=== PATIENT | male | born 1970 | race African-American/Black ===

== ENCOUNTER 2023-06-06 05:40 | Emergency (ER) | payer BC, SELFPAY ==
--- NOTE | 2023-06-06 18:22 | EDPHYS ---
Physician Documentation [facility] Name: Tevin Downs Age: 52 yrs Sex: Male : 1970 Arrival Date: 06/06/2023 Time: 17:40 Bed 20 Private MD: ED Physician Steve Parada HPI: 06/06 18:15 This 52 yrs old Black Male presents to ER via Ambulatory with complaints of Blood cp Pressure Problem, Arm Pain. 18:15 Patient is a 52-year-old male who presents to the emergency department with reported cp concern for hypertension. Patient reports he has had longstanding swelling of both upper and lower eyelids of the right eye and that he is scheduled for surgical procedure but was told he needed clearance by physician prior to surgery. Patient reports he has been monitoring his blood pressure at home and noticed that it was elevated but has no diagnosis of hypertension. Patient denies any current chest pain denies headache but does report intermittent right arm pain. Patient denies any arm pain at this time. Historical: - Allergies: 18:00 No Known Allergies; iw - Home Meds: 18:00 None [Active]; iw - PMHx: 18:00 None; iw - PSHx: 18:00 hernia; iw - Immunization history:: Client reports having NOT received the Covid vaccine. - Social history:: Smoking status: Reported history of juuling and/or vaping. ROS: 18:18 All other systems are negative. cp Exam: 18:20 Constitutional: The patient appears in no acute distress, alert, awake, non-toxic, well cp developed, well nourished. 18:20 Head/face: Noted is swelling, that is mild, of the left upper and lower eyelid. cp 18:20 Eyes: Pupils: equal, round, and reactive to light and accomodation, Extraocular movements: intact throughout, Conjunctiva: normal, no exudate, no injection, Sclera: no appreciated abnormality, Lids and lashes: appear normal, bilaterally. 18:20 ENT: External ear(s): are unremarkable, Nose: is normal, Mouth: Lips: moist, Oral mucosa: pink and intact, moist, Posterior pharynx: is normal, airway is patent, no erythema, no exudate. 18:20 Neck: ROM/movement: is normal, is supple, without pain, no range of motions limitations, no nuchal rigidity. 18:20 Chest/axilla: Inspection: normal, Palpation: crepitus, is not appreciated, tenderness, that is mild, of the right upper lateral chest. 18:20 Cardiovascular: Rate: normal, Rhythm: regular. 18:20 Respiratory: the patient does not display signs of respiratory distress, Respirations: normal, no use of accessory muscles, no retractions, labored breathing, is not present, Breath sounds: are clear throughout, no decreased breath sounds, no stridor, no wheezing. 18:20 Abdomen/GI: Exam negative for discomfort, distension, guarding, Inspection: abdomen appears normal. 18:20 Back: pain, is absent, ROM is normal. 18:20 Musculoskeletal/extremity: Exam is negative for decreased range of motion, deformity, injury. 18:20 Neuro: Orientation: to person, place \T\ time. Mentation: is normal, Motor: moves all cp fours, strength is normal, Sensation: is normal, Gait: is steady, at a normal pace, without difficulty. Vital Signs: 17:58 BP 138 / 89; Pulse 82; Resp 16; Temp 98.3; Pulse Ox 97% on R/A; Weight 79.38 kg; Height iw 5 ft. 5 in. ; Pain 0/10; 17:58 Body Mass Index 29.12 (79.38 kg, 165.1 cm) iw 17:58 Pain Scale: Adult iw MDM: 18:09 Patient medically screened. cp 18:15 Differential diagnosis: hypertension, hypertensive urgency, hypertensive emergency. cp 18:21 Data reviewed: vital signs, nurses notes. cp 18:21 Counseling: I had a detailed discussion with the patient and/or guardian regarding: the cp historical points, exam findings, and any diagnostic results supporting the discharge/admit diagnosis, to return to the emergency department if symptoms worsen or persist or if there are any questions or concerns that arise at home. Administered Medications: No medications were administered Disposition Summary: 06/06/23 18:21 Discharge Ordered Location: Home cp Problem: an ongoing problem cp Symptoms: are unchanged cp Condition: Stable cp Diagnosis - Encounter for examination of blood pressure cp Followup: cp - With: Jack Velasquez DO - When: 2 - 3 days - Reason: Recheck today's complaints Discharge Instructions: - Discharge Summary Sheet cp - Form - Blood Pressure Record Sheet cp - How to Take Your Blood Pressure cp Forms: - Medication Reconciliation Form cp - Thank You Letter cp - Antibiotic Education cp - Prescription Opioid Use cp - Patient Portal Instructions cp Signatures: Nicci Downs RN RN Steve Figueroa PA PA cp
--- NOTE | 2023-06-06 18:22 | ER ---
Nurse's Notes [facility] Name: Tevin Downs Age: 52 yrs Sex: Male : 1970 Arrival Date: 06/06/2023 Time: 17:40 Bed 20 Private MD: Diagnosis: Encounter for examination of blood pressure Presentation: 06/06 17:58 Chief complaint: Patient states: high BP and feels like my muscles are burning under my iw right shoulder and into chest started a couple days ago. Coronavirus screen: At this time, the client does not indicate any symptoms associated with coronavirus-19. Ebola Screen: Patient negative for fever greater than or equal to 101.5 degrees Fahrenheit, and additional compatible Ebola Virus Disease symptoms Patient denies exposure to infectious person. Patient denies travel to an Ebola-affected area in the 21 days before illness onset. No symptoms or risks identified at this time. Initial Sepsis Screen: Does the patient meet any 2 criteria? No. Patient's initial sepsis screen is negative. Does the patient have a suspected source of infection? No. Patient's initial sepsis screen is negative. Risk Assessment: Do you want to hurt yourself or someone else? Patient reports no desire to harm self or others. Onset of symptoms was June 04, 2023. 17:58 Method Of Arrival: Ambulatory iw 17:58 Acuity: KATHE 3 iw Historical: - Allergies: 18:00 No Known Allergies; iw - Home Meds: 18:00 None [Active]; iw - PMHx: 18:00 None; iw - PSHx: 18:00 hernia; iw - Immunization history:: Client reports having NOT received the Covid vaccine. - Social history:: Smoking status: Reported history of juuling and/or vaping. Screenin:28 [facility] ED Fall Risk Assessment (Adult) History of falling in the last 3 months, mb9 including since admission No falls in past 3 months (0 pts) Confusion or Disorientation No (0 pts) Intoxicated or Sedated No (0 pts) Impaired Gait No (0 pts) Mobility Assist Device Used No (0 pt) Altered Elimination No (0 pt) Score/Fall Risk Level 0 - 2 = Low Risk Oriented to surroundings, Maintained a safe environment, Educated pt \T\ family on fall prevention, incl call for assistance when getting out of bed. Abuse screen: Denies threats or abuse. Nutritional screening: No deficits noted. Tuberculosis screening: No symptoms or risk factors identified. Assessment: 18:27 General: Appears in no apparent distress. Behavior is calm, cooperative. Pain: Denies mb9 pain. Neuro: Tay Agitation-Sedation Scale (RASS): 0 - Alert and Calm Level of Consciousness is awake, alert, obeys commands, Oriented to person, place, time, situation, Appropriate for age. Cardiovascular: Denies chest pain, shortness of breath. Respiratory: Airway is patent. GI: No signs and/or symptoms were reported involving the gastrointestinal system. : No signs and/or symptoms were reported regarding the genitourinary system. EENT: No signs and/or symptoms were reported regarding the EENT system. Derm: Skin is pink, warm \T\ dry. Musculoskeletal: Range of motion: intact in all extremities. Vital Signs: 17:58 BP 138 / 89; Pulse 82; Resp 16; Temp 98.3; Pulse Ox 97% on R/A; Weight 79.38 kg; Height iw 5 ft. 5 in. ; Pain 0/10; 17:58 Body Mass Index 29.12 (79.38 kg, 165.1 cm) iw 17:58 Pain Scale: Adult iw ED Course: 17:43 Patient arrived in ED. ts1 17:56 Steve Guevara PA is PHCP. cp 17:56 Steve Parada MD is Attending Physician. cp 18:00 Triage completed. iw 18:02 Arm band placed on. iw 18:02 Placed in gown. Bed in low position. Call light in reach. Side rails up X 1. Client mb9 placed on continuous cardiac and pulse oximetry monitoring. NIBP monitoring applied. 18:10 Isabela Hayden, SILVIA is Primary Nurse. mb9 18:18 Jack Velasquez DO is Referral Physician. cp 18:28 No provider procedures requiring assistance completed. Patient did not have IV access mb9 during this emergency room visit. Administered Medications: No medications were administered Medication: 18:28 VIS not applicable for this client. mb9 Outcome: 18:21 Discharge ordered by . cp 18:28 Discharged to home ambulatory. mb9 18:28 Condition: stable 18:28 Discharge instructions given to patient, Instructed on discharge instructions, follow up and referral plans. Demonstrated understanding of instructions, follow-up care. 18:28 Patient left the ED. mb9 Signatures: Nicci Downs RN RN iw Steve Guevara PA PA cp Breneman, Mary Beth, RN RN mb9 Patt Gifford PAS PAS ts1
[2023-06-06 18:38] VITALS: BP 138/89; TEMP 98.3; O2SAT 97
== END 2023-06-06 18:28 | disposition home or self-care (01) ==
LOC: ER 17:40
DX: Z01.30 Encounter for examination of blood pressure without abnormal findings (principal)
CPT/HCPCS: 99283

== ENCOUNTER → 2023-12-15 | Emergency (ER) | payer BC ==
[~2023-12-15] MED LIST: IBUPROFEN 200 MG TAB PO ONE; IBUPROFEN 400 MG TAB ONE; predniSONE 20 MG TAB ONE
--- OUTSIDE RECORDS SUMMARY | 2023-12-15 19:10 | XMS REPORT | Continuity of Care Document ---
Author Name Unknown Address [address] [place] [address] [address] [place] [address] [facility] thconnect Address [address] [facility] [address] [place] [address] Care Team Providers Care Rn Interventional Name Role Phone BURKE MCDONALD Attending Clinician Unavaila ble Payers Payer Name Policy Type Policy Number Effective Date Expirati on Date Source [facility] 2 [id number] 2023 00:00:00 Encounters Start Date/Time End Date/Time Encounter Type Admission Type Attending Clinicians Care Facility Care Department Encounter ID Source 2023-06-18 14:15:00 2023-06-18 14:15:00 Outpatient BURKE MCDONALD [id number] Saima Campbell
--- NOTE | 2023-12-15 19:21 | EDPHYS ---
Physician Documentation [facility] Name: Tevin Downs Age: 53 yrs Sex: Male : 1970 Arrival Date: 12/15/2023 Time: 19:06 Bed IW10 Private MD: ED Physician Glen Matute HPI: 12/15 19:32 This 53 yrs old Black Male presents to ER via Ambulatory with complaints of Shoulder kb Pain, Breathing Difficulty, Rash. 19:32 Patient is a 53-year-old male who reports rash and right chest pain that is worse with kb breathing and movement that started 2 days ago. Denies fever. Denies injury or trauma.. Historical: - Allergies: 19:24 No Known Allergies; km8 - Home Meds: 19:24 None [Active]; km8 - PMHx: 19:24 None; km8 - PSHx: 19:24 hernia; km8 - Immunization history:: Client reports having NOT received the Covid vaccine. Flu vaccine is not up to date. - Social history:: Smoking status: Patient reports the use of cigarette tobacco products, smokes one pack cigarettes per day. Patient uses alcohol, but reports only rare drinking. Patient/guardian denies using street drugs. ROS: 19:31 Constitutional: Negative for fever, chills, and weight loss, kb 19:31 Cardiovascular: Positive for chest pain, with movement, of the right scapular area and anterior aspect of right upper chest, 19:31 Skin: Positive for rash, 19:31 All other systems are negative, Exam: 19:31 Constitutional: This is a well developed, well nourished patient who is awake, alert, kb and in no acute distress. Head/Face: Normocephalic, atraumatic. ENT: Moist Mucous membranes Cardiovascular: Regular rate Respiratory: Respirations even and unlabored. No increased work of breathing. Talking in full sentences Abdomen/GI: Soft, non-tender. No distention MS/ Extremity: Pulses equal, no cyanosis. Neurovascular intact. Full, normal range of motion. Neuro: Awake and alert, GCS 15, oriented to person, place, time, and situation. Moves all extremities. Normal gait. 19:31 Skin: rash a moderate rash is noted, consistent with zoster, on the anterior aspect of right upper chest and right scapular area, Vital Signs: 19:19 BP 173 / 116; Pulse 85; Resp 16; Temp 98.4(IR); Pulse Ox 99% on R/A; Weight 70.76 kg km8 (R); Height 5 ft. 5 in. ; Pain 8/10; 19:19 Body Mass Index 25.96 (70.76 kg, 165.1 cm) [facility] 19:19 Pain Scale: Adult km8 MDM: 19:14 Patient medically screened. kb 19:32 Differential diagnosis: urticaria, contusion, strain, shingles. Data reviewed: vital kb signs, nurses notes. Test considered but Not performed: X-ray: x-ray considered but obvious shingles on physical exam, no bony tenderness, full ROM. Counseling: I had a detailed discussion with the patient and/or guardian regarding the historical points, exam findings, and any diagnostic results supporting the discharge/admit diagnosis, the need for outpatient follow up, a family practitioner, to return to the emergency department if symptoms worsen or persist or if there are any questions or concerns that arise at home. Administered Medications: No medications were administered Disposition: 12/16 09:03 Co-signature as Attending Physician, Glen Matute MD I reviewed the patient's care rn provided by the Advanced Practice Provider and agree with the diagnosis and treatment plan. Disposition Summary: 12/15/23 19:20 Discharge Ordered Notes: Location: Home kb Condition: Stable kb Diagnosis - Zoster without complications kb Followup: kb - With: Emergency Department - When: As needed - Reason: Worsening of condition Followup: kb - With: Private Physician - When: 2 - 3 days - Reason: Recheck today's complaints, Continuance of care, Re-evaluation by your physician Discharge Instructions: - Discharge Summary Sheet kb - Shingles, [id number] kb Forms: - Medication Reconciliation Form kb - Thank You Letter kb - Antibiotic Education kb - Prescription Opioid Use kb - Patient Portal Instructions kb - Leadership Thank You Letter kb Prescriptions: - Valtrex 1 gram Oral tablet - take 1 tablet ORAL route 3 times per day for 7 days; 21 tablet; Refills: 0, kb Product Selection Permitted - acetaminophen-codeine 300-30 mg Oral tablet - take 1 tablet ORAL route every 4-6 hours As needed; 16 tablet; Refills: 0, kb Product Selection Permitted Signatures: Tracey Irby FNP-C FNP-Ckb Glen Matute MD MD rn Darlyn Vick, SILVIA RN km8
--- NOTE | 2023-12-15 19:41 | ER ---
Nurse's Notes [facility] Name: Tevin Downs Age: 53 yrs Sex: Male : 1970 Arrival Date: 12/15/2023 Time: 19:06 Bed IW10 Private MD: Diagnosis: Zoster without complications Presentation: 12/15 19:19 Chief complaint: Patient states: rash to right chest starting 2 days ago. Coronavirus km8 screen: Client denies travel out of the [place] in the last 14 days. Ebola Screen: No symptoms or risks identified at this time. Initial Sepsis Screen: Does the patient meet any 2 criteria? No. Patient's initial sepsis screen is negative. Does the patient have a suspected source of infection? No. Patient's initial sepsis screen is negative. Risk Assessment: Do you want to hurt yourself or someone else? Patient reports no desire to harm self or others. Onset of symptoms was December 13, 2023. 19:19 Method Of Arrival: Ambulatory km8 19:19 Acuity: KATHE 4 km8 Triage Assessment: 19:24 General: Appears in no apparent distress. uncomfortable, Behavior is calm, cooperative, km8 appropriate for age. Pain: Complains of pain in right chest wall Pain currently is 8 out of 10 on a pain scale. EENT: No signs and/or symptoms were reported regarding the EENT system. Neuro: Level of Consciousness is awake, alert, obeys commands, Oriented to person, place, time, situation, Appropriate for age. Cardiovascular: Denies chest pain, shortness of breath, Capillary refill < 3 seconds Patient's skin is warm and dry. Respiratory: Airway is patent Respiratory effort is even, unlabored, Respiratory pattern is regular, symmetrical. GI: No signs and/or symptoms were reported involving the gastrointestinal system. : No signs and/or symptoms were reported regarding the genitourinary system. Derm: Skin has blisters on right chest wall Skin is dry, Skin is pink, warm \T\ dry. normal, Skin temperature is warm. Musculoskeletal: Circulation, motion, and sensation intact. Range of motion: intact in all extremities. Historical: - Allergies: 19:24 No Known Allergies; km8 - Home Meds: 19:24 None [Active]; km8 - PMHx: 19:24 None; km8 - PSHx: 19:24 hernia; km8 - Immunization history:: Client reports having NOT received the Covid vaccine. Flu vaccine is not up to date. - Social history:: Smoking status: Patient reports the use of cigarette tobacco products, smokes one pack cigarettes per day. Patient uses alcohol, but reports only rare drinking. Patient/guardian denies using street drugs. Screenin:32 [facility] ED Fall Risk Assessment (Adult) Score/Fall Risk Level 0 - 2 = Low Risk. Abuse as6 screen: Denies threats or abuse. Denies injuries from another. Nutritional screening: No deficits noted. Tuberculosis screening: No symptoms or risk factors identified. Assessment: 19:34 General: see triage notes/assessment. km8 Vital Signs: 19:19 BP 173 / 116; Pulse 85; Resp 16; Temp 98.4(IR); Pulse Ox 99% on R/A; Weight 70.76 kg km8 (R); Height 5 ft. 5 in. ; Pain 8/10; 19:19 Body Mass Index 25.96 (70.76 kg, 165.1 cm) km8 19:19 Pain Scale: Adult 8 ED Course: 19:08 Patient arrived in ED. es 19:14 Tracey Irby FNP-C is [facility]. kb 19:14 Glen Matute MD is Attending Physician. kb 19:23 Triage completed. km8 19:24 Arm band placed on right wrist. km8 19:32 Bed in low position. Call light in reach. Provided Education on: rx teaching. as6 19:33 No provider procedures requiring assistance completed. Patient did not have IV access as6 during this emergency room visit. Administered Medications: No medications were administered Medication: 19:33 VIS not applicable for this client. as6 Outcome: 19:20 Discharge ordered by . kb 19:33 Discharged to home ambulatory, as6 19:33 Condition: stable 19:33 Discharge instructions given to patient, Instructed on discharge instructions, follow up and referral plans. medication usage, Demonstrated understanding of instructions, follow-up care, medications, Prescriptions given X 2, 19:41 Patient left the ED. km8 Signatures: Tracey Irby FNP-C FNP-Xuan Kaye Brendan Mariscal RN RN as6 Darlyn Vick RN RN km8
[2023-12-15 23:34] VITALS: BP 173/116; TEMP 98.4; O2SAT 99
== END ==
LOC: ER 19:06
DX: B02.9 Zoster without complications (principal); R07.9 Chest pain, unspecified; F17.210 Nicotine dependence, cigarettes, uncomplicated

== ENCOUNTER → 2023-12-16 | Emergency (ER) | payer BC ==
--- OUTSIDE RECORDS SUMMARY | 2023-12-16 20:38 | XMS REPORT | Continuity of Care Document ---
Author Name Unknown Address [address] [place] [address] thconnect Address [address] [place] [address] [address] [place] [address] Care Team Providers Care Fermentation Manager Name Role Phone BURKE MCDONALD Attending Clinician Unavaila ble Payers Payer Name Policy Type Policy Number Effective Date Expirati on Date Source [employer] 2 [id number] 2023 00:00:00 Encounters Start Date/Time End Date/Time Encounter Type Admission Type Attending Clinicians Care Facility Care Department Encounter ID Source 2023-06-18 14:15:00 2023-06-18 14:15:00 Outpatient BURKE MCDONALD [id number] Saima Campbell
--- NOTE | 2023-12-16 21:25 | ER ---
Nurse's Notes [facility] Name: Tevin Downs Age: 53 yrs Sex: Male : 1970 Arrival Date: 12/16/2023 Time: 20:35 Bed IW1 Private MD: Diagnosis: Zoster without complications Presentation: 12/16 20:55 Chief complaint: Patient states: Pt states he was diagnosed with shingles at this ED tl4 last night. Pt states the pain medication he was given is ineffective and made the pain worse. Coronavirus screen: Vaccine status: Patient reports being unvaccinated. Ebola Screen: Patient negative for fever greater than or equal to 101.5 degrees Fahrenheit, and additional compatible Ebola Virus Disease symptoms Patient denies exposure to infectious person. Patient denies travel to an Ebola-affected area in the 21 days before illness onset. No symptoms or risks identified at this time. Initial Sepsis Screen: Does the patient meet any 2 criteria? No. Patient's initial sepsis screen is negative. Does the patient have a suspected source of infection? No. Patient's initial sepsis screen is negative. Risk Assessment: Do you want to hurt yourself or someone else? Patient reports no desire to harm self or others. Onset of symptoms was December 15, 2023. 20:55 Method Of Arrival: Ambulatory tl4 20:55 Acuity: KATHE 4 tl4 Triage Assessment: 21:00 General: Appears uncomfortable, Behavior is calm, cooperative. Pain: Complains of pain tl4 in chest. EENT: No deficits noted. No signs and/or symptoms were reported regarding the EENT system. Neuro: No deficits noted. Cardiovascular: No deficits noted. Respiratory: No deficits noted. GI: No deficits noted. No signs and/or symptoms were reported involving the gastrointestinal system. : No deficits noted. No signs and/or symptoms were reported regarding the genitourinary system. Historical: - Allergies: 20:59 No Known Allergies; tl4 - Home Meds: 20:59 None [Active]; tl4 - PMHx: 20:59 None; tl4 - PSHx: 20:59 hernia; tl4 - Immunization history:: Adult Immunizations unknown. - Social history:: Smoking status: Patient reports the use of cigarette tobacco products, smokes three packs cigarettes per day. Screenin:27 [facility] ED Fall Risk Assessment (Adult) History of falling in the last 3 months, tl4 including since admission No falls in past 3 months (0 pts) Confusion or Disorientation No (0 pts) Intoxicated or Sedated No (0 pts) Impaired Gait No (0 pts) Mobility Assist Device Used No (0 pt) Altered Elimination No (0 pt) Score/Fall Risk Level 0 - 2 = Low Risk Oriented to surroundings, Maintained a safe environment, Educated pt \T\ family on fall prevention, incl call for assistance when getting out of bed, Assessed \T\ reinforced patient's understanding of fall precautions, Provided non-skid footwear, Hourly rounding (assess needs \T\ fall precautionary measures) done, Used ambulatory aids as needed (educated on \T\ assisted with), Used gait belt as appropriate. Abuse screen: Denies threats or abuse. Denies injuries from another. Nutritional screening: No deficits noted. Tuberculosis screening: No symptoms or risk factors identified. Assessment: 21:27 Reassessment: No changes from previously documented assessment. Patient and/or family tl4 updated on plan of care and expected duration. Pain level reassessed. Patient is alert, oriented x 3, equal unlabored respirations, skin warm/dry/pink. Vital Signs: 20:55 BP 159 / 113; Pulse 120; Resp 18; Temp 100.4(O); Pulse Ox 99% on R/A; Weight 70.76 kg; tl4 Height 5 ft. 5 in. ; Pain 10/10; 21:26 BP 128 / 95; Pulse 101; Resp 18; Temp 100.2(O); Pulse Ox 98% on R/A; tl4 20:55 Body Mass Index 25.96 (70.76 kg, 165.1 cm) tl4 20:55 Pain Scale: Adult tl4 ED Course: 20:39 Patient arrived in ED. jj6 20:54 Wilver Rubi MD is Attending Physician. kdr 20:59 Triage completed. tl4 21:01 Arm band placed on Patient placed in an exam room, on a stretcher. tl4 21:15 Chavez Andino is Primary Nurse. tl4 21:27 Patient has correct armband on for positive identification. Bed in low position. Call tl4 light in reach. Provided Education on: ed process. 21:28 No provider procedures requiring assistance completed. Patient did not have IV access tl4 during this emergency room visit. Administered Medications: 21: Drug: predniSONE PO 60 mg PO once Route: PO; tl4 :31 Follow up: Response: No adverse reaction; Medication administered at discharge. tl4 21: Drug: Ibuprofen PO 600 mg PO once Route: PO; tl4 :31 Follow up: Response: No adverse reaction; Medication administered at discharge. tl4 Medication: 21:27 VIS not applicable for this client. tl4 Outcome: :24 Discharge ordered by . kdr :31 Discharged to home ambulatory, with friend, tl4 :31 Condition: stable :31 Discharge instructions given to patient, Instructed on discharge instructions, follow up and referral plans. medication usage, Demonstrated understanding of instructions, follow-up care, medications, :32 Patient left the ED. tl4 Signatures: Wilver Rubi MD MD kdr Jeffries, Jennifer jj6 Chavez Andino tl4 Corrections: (The following items were deleted from the chart) 21:00 20:59 PSHx: hernia; tl4 tl4
--- NOTE | 2023-12-16 21:25 | EDPHYS ---
Physician Documentation [facility] Name: Tevin Downs Age: 53 yrs Sex: Male : 1970 Arrival Date: 12/16/2023 Time: 20:35 Bed IW1 Private MD: ED Physician Wilver Rubi HPI: 12/16 22:55 This 53 yrs old Black Male presents to ER via Ambulatory with complaints of Pain All kdr Over. 22:55 Patient was recently diagnosed with shingles and has shingles related pain. He was kdr given pain medication (Tylenol 3) but he states he got little relief and it made him feel poorly. Patient said he threw out the rest of the prescription. Patient is wondering there is anything stronger. Patient does not appear in any acute distress. Onset: The symptoms/episode began/occurred gradually, at an unknown time. Severity of symptoms: At their worst the symptoms were mild in the emergency department the symptoms are unchanged. The patient has not experienced similar symptoms in the past. The patient has been recently seen at the [facility] Emergency Department, yesterday. Historical: - Allergies: 20:59 No Known Allergies; tl4 - Home Meds: 20:59 None [Active]; tl4 - PMHx: 20:59 None; tl4 - PSHx: 20:59 hernia; tl4 - Immunization history:: Adult Immunizations unknown. - Social history:: Smoking status: Patient reports the use of cigarette tobacco products, smokes three packs cigarettes per day. ROS: 22:55 Constitutional: Negative for fever, chills, and weight loss, Eyes: Negative for injury, kdr pain, redness, and discharge, Neck: Negative for injury, pain, and swelling, Cardiovascular: Negative for chest pain, palpitations, and edema, Respiratory: Negative for shortness of breath, cough, wheezing, and pleuritic chest pain, Abdomen/GI: Negative for abdominal pain, nausea, vomiting, diarrhea, and constipation, Back: Negative for injury and pain, : Negative for injury, bleeding, discharge, and swelling, Neuro: Negative for headache, weakness, numbness, tingling, and seizure activity. Psych: Negative for depression, anxiety, suicide ideation, homicidal ideation, and hallucinations, Allergy/Immunology: Negative for hives, rash, and allergies, Endocrine: Negative for neck swelling, polydipsia, polyuria, polyphagia, and marked weight changes, Hematologic/Lymphatic: Negative for swollen nodes, abnormal bleeding, and unusual bruising, Exam: 22:55 Constitutional: This is a well developed, well nourished patient who is awake, alert, kdr and in no acute distress. Head/Face: Normocephalic, atraumatic. Eyes: Pupils equal round and reactive to light, extra-ocular motions intact. Lids and lashes normal. Conjunctiva and sclera are non-icteric and not injected. Cornea within normal limits. Periorbital areas with no swelling, redness, or edema. Neck: Trachea midline, no thyromegaly or masses palpated, and no cervical lymphadenopathy. Supple, full range of motion without nuchal rigidity, or vertebral point tenderness. No Meningismus. Chest/axilla: Normal chest wall appearance and motion. Nontender with no deformity. No lesions are appreciated. Vital Signs: 20:55 BP 159 / 113; Pulse 120; Resp 18; Temp 100.4(O); Pulse Ox 99% on R/A; Weight 70.76 kg; tl4 Height 5 ft. 5 in. ; Pain 10/10; 21:26 BP 128 / 95; Pulse 101; Resp 18; Temp 100.2(O); Pulse Ox 98% on R/A; tl4 20:55 Body Mass Index 25.96 (70.76 kg, 165.1 cm) tl4 20:55 Pain Scale: Adult tl4 MDM: 21:24 Patient medically screened. kdr 22:55 Data reviewed: vital signs, nurses notes. kdr 12/16 21:19 Order name: VS Recheck; Complete Time: 21:26 kdr Administered Medications: 21:26 Drug: predniSONE PO 60 mg PO once Route: PO; tl4 21:31 Follow up: Response: No adverse reaction; Medication administered at discharge. tl4 21:26 Drug: Ibuprofen PO 600 mg PO once Route: PO; tl4 21:31 Follow up: Response: No adverse reaction; Medication administered at discharge. tl4 Disposition Summary: 12/16/23 21:24 Discharge Ordered Notes: Location: Home kdr Problem: an ongoing problem kdr Symptoms: are unchanged kdr Condition: Stable kdr Diagnosis - Zoster without complications kdr Followup: kdr - With: Private Physician - When: 2 - 3 days - Reason: If symptoms return, Further diagnostic work-up, Recheck today's complaints, Continuance of care, Re-evaluation by your physician Discharge Instructions: - Discharge Summary Sheet kdr - Neuropathic Pain kdr - Shingles, [id number] kdr Forms: - Medication Reconciliation Form kdr - Thank You Letter kdr - Patient Portal Instructions kdr - Leadership Thank You Letter kdr Prescriptions: - Prednisone 20 mg Oral tablet - take 1 tablet ORAL route once daily for 10 days Take 20 mg 3 times daily for 4 kdr days then 20 mg twice daily for 4 days then 20 mg p.o. daily for 4 days. Dispense quantity sufficient; 5 tablet; Refills: 0, Product Selection Permitted Signatures: Wilver Rubi MD MD kdr Chavez Andino tl4 Corrections: (The following items were deleted from the chart) 21:00 20:59 PSHx: hernia; tl4 tl4
[2023-12-16 23:45] VITALS: BP 128/95; TEMP 100.2; O2SAT 98
== END ==
LOC: ER 20:35
DX: B02.9 Zoster without complications (principal); F17.210 Nicotine dependence, cigarettes, uncomplicated
CPT/HCPCS: 99283; J7512